=== PATIENT | female | born 1950 | race Caucasian/White ===

== ENCOUNTER 2017-06-11 05:45 | Day surgery (SDC) | payer MEDICARE, MEDICAID ==
[~2017-06-11] VITALS: Ht 144.8 cm; Wt 77.1 kg
[2017-06-11 06:58] LABS: CREATININE 1.29 mg/dL (0.55-1.30); POTASSIUM 3.6 mmol/L (3.5-5.1)
[2017-06-11 06:59] LABS: PROTHROMBIN TIME 9.9 SECS (9.5-12.5)
[2017-06-11 07:03] LABS: BASOPHILS # (AUTO) 0.1 K/uL (0.0-0.2); BASOPHILS % (AUTO) 1.1 % (0.0-2.0); EOSINOPHILS # (AUTO) 0.6 K/uL (0.0-0.4); EOSINOPHILS % (AUTO) 9.5 % (0.0-4.0); HEMOGLOBIN 12.3 g/dL (12.0-16.0); LYMPHOCYTES # (AUTO) 1.7 K/uL (1.0-5.5); LYMPHOCYTES % (AUTO) 28.5 % (20.5-51.5); MEAN CORPUSCULAR HEMOGLOBIN 28 pg (27-31); MEAN CORPUSCULAR HGB CONC 32 % (32-36); MEAN CORPUSCULAR VOLUME 88 fL (79.0-98.0); MONOCYTES # (AUTO) 0.4 K/uL (0.0-1.0); NEUTROPHILS # (AUTO) 3.2 K/uL (1.8-7.7); NEUTROPHILS % (AUTO) 54.9 % (40.0-70.0); PLATELET COUNT (AUTO) 188 K/uL (130-430); RED BLOOD CELL COUNT(AUTO) 4.34 MIL/uL (4.2-6.2); RED CELL DISTRIBUTION WIDTH 13.3 % (9.0-15.0)
[2017-06-11] MEDS ORDERED: ATROPINE SULFATE 0.4 MG/ML VIAL IVP ONE (07:30)
[2017-06-11] MEDS ORDERED: ONDANSETRON HCL 4 MG/2 ML VIAL IVP ONE (07:30)
[2017-06-11] MEDS ORDERED: SEVOFLURANE 15 MIN GAS INH ONE (07:30)
[2017-06-11] MEDS ORDERED: SUCCINYLCHOLINE CHLORIDE 20 MG/ML(QUELICIN) IVP ONE (07:30)
[2017-06-11] MEDS ORDERED: PROPOFOL 200MG/ 20ML VIAL (DIPRIVAN) IV ONE (07:30)
[2017-06-11] MEDS ORDERED: fentaNYL CITRATE/PF 100 MCG/2 ML AMP IVP ONE (07:30)
[2017-06-11] MEDS ORDERED: CEFAZOLIN 2 GM IVPB PREMIX 50 ML IV ONE (07:30)
[2017-06-11] MEDS ORDERED: MIDAZOLAM HCL 5 MG/5 ML VIAL IVP ONE (07:30)
[2017-06-11] MEDS ORDERED: DEXAMETHASONE SOD PHOSPHATE 4 MG/ML VIAL IVP ONE (07:30)
[2017-06-11] MEDS ORDERED: LR 1,000 ML IV SCH (08:33)
[2017-06-11] MEDS ORDERED: MORPHINE 4 MG/ML INJ. SYRINGE IVP PRN ×4 (08:45→09:00)
[2017-06-11] MEDS ORDERED: METOCLOPRAMIDE HCL 10 MG/2 ML VIAL IVP PRN (08:45)
[2017-06-11] MEDS ORDERED: BISACODYL 10 MG/SUPPOSITORY RC PRN (09:00)
[2017-06-11] MEDS ORDERED: ONDANSETRON HCL 4 MG/2 ML VIAL IVP PRN (09:00)
[2017-06-11] MEDS ORDERED: METHOCARBAMOL 500 MG TABLET PO PRN (09:00)
[2017-06-11] MEDS ORDERED: MILK OF MAGNESIA 30 ML UDC PO PRN (09:00)
[2017-06-11] MEDS ORDERED: HYDROcodone/ACETAMIN 10-325 MG TAB PO PRN ×2 (09:00)
[2017-06-11] MEDS ORDERED: DIPHENHYDRAMINE HCL 50 MG CAPSULE PO PRN (09:00)
[2017-06-11] MEDS: DOCUSATE SODIUM 100 MG CAPSULE PO SCH ×2 (09:00→21:00)
[2017-06-11] MEDS ORDERED: NALOXONE HCL 0.4 MG/ML AMP (NARCAN) ONE (09:25)
[2017-06-11] MEDS ORDERED: MORPHINE 4 MG/ML INJ. SYRINGE ONE (09:42)
[2017-06-11 10:41] VITALS: BP_SYST 123
[2017-06-11] MEDS: KCL 20 mEq in D5NS 1000 mL 1,000 ML IV SCH ×2 (11:57→23:45)
[2017-06-11] MEDS: CEFAZOLIN 2 GM IVPB PREMIX 50 ML IV SCH ×2 (11:58→21:17)
[2017-06-11 12:12] VITALS: BP_SYST 142
[2017-06-11] MEDS: MORPHINE SULFATE 10 MG/ML VIAL IVP PRN ×3 (14:30→21:32)
[2017-06-11 16:14] VITALS: BP_SYST 156
[2017-06-11 19:00] VITALS: BP_SYST 128
[2017-06-11 20:00] VITALS: BP_SYST 128
[2017-06-11] MEDS ORDERED: TEMAZEPAM 15 MG CAPSULE PO PRN (21:00)
[2017-06-12 01:33] VITALS: BP_SYST 117
[2017-06-12] MEDS: CEFAZOLIN 2 GM IVPB PREMIX 50 ML IV SCH (03:36)
[2017-06-12] MEDS: MORPHINE SULFATE 10 MG/ML VIAL IVP PRN (06:57)
[2017-06-12 07:58] VITALS: BP_SYST 101
[2017-06-12] MEDS: DOCUSATE SODIUM 100 MG CAPSULE PO SCH (08:49)
[2017-06-12] MEDS: KCL 20 mEq in D5NS 1000 mL 1,000 ML IV SCH (10:02)
[2017-06-12 14:24] VITALS: BP_SYST 124
[2017-06-12 16:12] VITALS: BP_SYST 130
== END 2017-06-12 18:40 | disposition left against medical advice (07) ==
LOC: SMU 05:45 → SOR 05:45 → SMU 08:55 → SOR 06-12 18:40
PROVIDERS: ATTEND Neurological Surgery
DX: M48.061 Spinal stenosis, lumbar region without neurogenic claudication (principal); E66.3 Overweight; M47.897 Other spondylosis, lumbosacral region; D64.9 Anemia, unspecified; F31.9 Bipolar disorder, unspecified
CPT/HCPCS: 36415; 63047; 76001; 80048; 85025; 85610; 85730; 87081; 97110; 97116 ×2; 97162; 97530; C1713; J0330; J0461; J0690; J1100; J2250; J2270 ×3; J2310; J2405; J2704; J3010; J7120